=== PATIENT | female | born 1950 | race Caucasian/White ===

== ENCOUNTER → 2016-08-27 | Outpatient (CLI) | payer MEDICARE, OTHER ==
[~2016-08-27] MED LIST: ANORO ELLIPTA 62.1 - IH; BENTYL20 MG PO; CARAFATE1 GM PO; COMPAZINE10 MG PO; DELTASONE DPS10 MG PO; FLOVENT DISKU100 MCG IH; LEVAQUIN DPS750 MG PO; LEXAPRO20 MG PO; LIBRIUM-DPS25 MG PO; NITROSTAT0.4 MG SL; OXYGEN; PEPCID DPS20 MG PO; PRIMIDONE250 MG PO; PROAIR HFA8.5 GM IH; PROTONIX40 MG PO; SENEXON8.6 MG PO; SINEQUAN DPS PO; TURDOZA IH; TYLENOL PM EX-1 EACH PO; ZOCOR20 MG PO; ZOFRAN8 MG PO; [UNRECOGNIZED DRUG - OTHER] PO
== END | disposition home or self-care (01) ==
LOC: RAD.S 07-28 13:20
DX: Z12.31 Encounter for screening mammogram for malignant neoplasm of breast (principal); Z80.3 Family history of malignant neoplasm of breast

== ENCOUNTER 2016-09-13 23:55 | Emergency (ER) | payer MEDICARE, OTHER ==
[~2016-09-13 23:55] MED LIST changes: -ANORO ELLIPTA 62.1 - IH; -DELTASONE DPS10 MG PO; -FLOVENT DISKU100 MCG IH; -LEVAQUIN DPS750 MG PO; -LIBRIUM-DPS25 MG PO; -NITROSTAT0.4 MG SL; -PEPCID DPS20 MG PO; -SINEQUAN DPS PO
--- NOTE | 2016-09-14 06:13 | ER ---
ADMIT: 09/13/2016 RM/LOC: ER [facility] MR#: [id number] [address] [place] [address] Emergency Room Report SEX: F AGE: 65 : 1950 DATE: 09/13/2016 HISTORY OF PRESENT ILLNESS: Patient is a 65-year-old female with a past medical history of COPD, bipolar disorder, came to the ER with chief complaint of epigastric pain, pain is dull. She had it for 1 day. The patient states the pain was moderate, right now is [id number]. Does not increase with any position or eating. The patient states she had similar pain in the past, which resolved by itself spontaneously. The patient had normal bowel movement. The patient had no nausea or vomiting. PHYSICAL EXAMINATION: VITAL SIGNS: Normal. GENERAL: The patient was in no pain or distress, lying in bed, answering the question. HEAD AND NECK: Noncontributory. CHEST: Clear bilaterally. HEART: Normal heart sounds. ABDOMEN: There is no obvious tenderness or rebound or guarding. The rest of the physical exam is noncontributory. CBC showed white BC of 6.2 with hemoglobin of 13.1, lactic acid was 0.7 with AST of 14 and ALT of 17 and lipase of 89. Urine has just 2 white BC and [address] RBC. Abdom[address] and pelvis CT scan was negative for any pathologies. The patient received GI cocktail in the ER. The patient was observed and re- examined, did not develop any new symptoms. The patient is stable, pain improved. PLAN: The patient can be followed as an outpatient. Roque Fried MD/ alex JOB #: [id number] CC: Roque Fried MD, Attending Physician
--- NOTE | 2016-09-15 15:23 | NUR ---
Pt triggered for a high ED user. Called and spoke with pt. Pt states she talked with her PCP (Dr. Bassett) office yesterday. States she has transportation and able to get her medications. Deny any needs at this time. Pt has Medicare.
[2017-03-08] MEDS ORDERED: LIBRIUM-DPS25 MG PO (14:27)
[2017-03-08] MEDS ORDERED: NITROSTAT0.4 MG SL (14:28)
[2017-03-08] MEDS ORDERED: PRIMIDONE250 MG PO (14:30)
[2017-03-08] MEDS ORDERED: SINEQUAN DPS PO (14:31)
[2017-03-08] MEDS ORDERED: PEPCID DPS20 MG PO (14:32)
[2017-03-08] MEDS ORDERED: ANORO ELLIPTA 62.1 - IH (14:33)
[2017-03-08] MEDS ORDERED: FLOVENT DISKU100 MCG IH (14:36)
[2017-03-08] MEDS ORDERED: DELTASONE DPS10 MG PO (14:37)
[2017-03-08] MEDS ORDERED: LEVAQUIN DPS750 MG PO (14:37)
== END 2016-09-14 04:21 | disposition home or self-care (01) ==
LOC: ER 23:55
DX: R10.13 Epigastric pain (principal); F31.9 Bipolar disorder, unspecified; F17.210 Nicotine dependence, cigarettes, uncomplicated; Z88.0 Allergy status to penicillin; Z88.1 Allergy status to other antibiotic agents; Z88.5 Allergy status to narcotic agent; Z88.8 Allergy status to other drugs, medicaments and biological substances; Z79.899 Other long term (current) drug therapy

== ENCOUNTER 2016-11-16 09:36 | Day surgery (SDC) | payer MEDICARE, OTHER ==
[~2016-11-16] VITALS: Ht 160 cm; Wt 70.0 kg
--- NOTE | 2016-11-17 10:36 | OR ---
ADMIT: 11/16/2016 RM/LOC: [facility] MR#: [id number] [address] [place] [address] Operative/Delivery Room Report SEX: F AGE: 66 : 1950 SURGERY DATE: 11/16/2016 SURGEON: Ismael Ahn MD PREOPERATIVE DIAGNOSIS: Epigastric pain, question malabsorption problems. POSTOPERATIVE DIAGNOSES: 1. Small sliding-type hiatal hernia approximately 1 cm in length. 2. Small lipomatous appearing mass in the submucosa of the second portion of the duodenum. PROCEDURE PERFORMED: EGD with biopsies. ANESTHESIA: Sedation. ESTIMATED BLOOD LOSS: None. DESCRIPTION OF PROCEDURE: After appropriate informed consent was obtained, the patient was brought to the endoscopy suite. IV sedation was provided. A well-lubricated endoscope was introduced and passed down the esophagus. The proximal and mid esophagus appeared normal. Distal esophagus though did show evidence of sliding type hiatal hernia about 1 cm in length. No evidence of any significant reflux damage to the esophagus, no stricture or narrowing. The scope was easily advanced to the stomach. The gastric mucosa appeared normal throughout. The pylorus was intubated. Duodenal bulb appeared normal. In the second portion of the duodenum though, she did have a small, less than a cm in diameter submucosal nodule. There is no ulceration overlying. The mucosa appeared normal. I pushed on it with the biopsy forceps, it was very soft and it appeared to be consistent with a submucosal lipoma. Several biopsies were taken of the mucosa of the duodenum to rule out any malabsorption problem. The scope was then pulled back into the stomach, retroflexed again revealing just a small sliding-type hiatal hernia from below. No proximal gastritis or mass. Several biopsies taken of the antrum. Then biopsies also taken of the distal esophagus. The stomach was then deflated scope withdrawn without apparent complications. The patient tolerated the procedure well and was taken to the recovery room in stable condition. Ismael Ahn MD/ alex JOB #: [id number] CC: Ismael Ahn, Attending Physician Meka Rivera, Family Physician
[2017-03-08] MEDS ORDERED: LIBRIUM-DPS25 MG PO (14:27)
[2017-03-08] MEDS ORDERED: NITROSTAT0.4 MG SL (14:28)
[2017-03-08] MEDS ORDERED: PRIMIDONE250 MG PO (14:30)
[2017-03-08] MEDS ORDERED: SINEQUAN DPS PO (14:31)
[2017-03-08] MEDS ORDERED: PEPCID DPS20 MG PO (14:32)
[2017-03-08] MEDS ORDERED: ANORO ELLIPTA 62.1 - IH (14:33)
[2017-03-08] MEDS ORDERED: FLOVENT DISKU100 MCG IH (14:36)
[2017-03-08] MEDS ORDERED: LEVAQUIN DPS750 MG PO (14:37)
[2017-03-08] MEDS ORDERED: DELTASONE DPS10 MG PO (14:37)
== END 2016-11-16 12:34 | disposition home or self-care (01) ==
LOC: SSS 09:36
PROC: 0DB98ZX Excision of Duodenum, Via Natural or Artificial Opening Endoscopic, Diagnostic (ICD-10-PCS; principal; 2016-11-16)
PROC: 0DB78ZX Excision of Stomach, Pylorus, Via Natural or Artificial Opening Endoscopic, Diagnostic (ICD-10-PCS; principal; 2016-11-16)
PROC: 0DB38ZX Excision of Lower Esophagus, Via Natural or Artificial Opening Endoscopic, Diagnostic (ICD-10-PCS; principal; 2016-11-16)
DX: K29.50 Unspecified chronic gastritis without bleeding (principal); K21.9 Gastro-esophageal reflux disease without esophagitis; J44.9 Chronic obstructive pulmonary disease, unspecified; G47.30 Sleep apnea, unspecified; I10 Essential (primary) hypertension; F17.210 Nicotine dependence, cigarettes, uncomplicated; Z90.710 Acquired absence of both cervix and uterus; Z98.890 Other specified postprocedural states; Z88.0 Allergy status to penicillin; Z88.1 Allergy status to other antibiotic agents; Z88.6 Allergy status to analgesic agent; Z79.899 Other long term (current) drug therapy; Z86.010 Personal history of colon polyps

== ENCOUNTER 2016-11-28 06:51 | Emergency (ER) | payer MEDICARE, OTHER ==
--- NOTE | 2016-11-28 19:02 | ER ---
ADMIT: 11/28/2016 RM/LOC: ER [facility] MR#: [id number] [address] [place] [address] Emergency Room Report SEX: F AGE: 66 : 1950 DATE: 11/28/2016 The patient is a 66-year-old female with nonobstructive coronary artery disease, atypical chest pain, hyperlipidemia, hypertension, COPD, recent EGD by Dr. Ahn with no acute findings. The patient states that she has substernal chest pain for the past 3 hours, associated shortness of breath, and pleuritic-type pain. Continues to smoke. Exam is remarkable for nontoxic, afebrile female with audible wheezes. Chest x-ray, no acute findings. EKG showed sinus rhythm without ST-T or Q-wave change. The patient is given 2 DuoNeb, Solu-Medrol, magnesium with improvement. Discharged with Levaquin 500 mg daily and prednisone 20 mg daily and follow up with Dr. Rivera as scheduled. Viraj Hyman MD/ alex JOB #: [id number] CC: Viraj Hyman MD, Attending Physician Meka Rivera MD, Family Physician Meka Rivera MD
[2017-03-08] MEDS ORDERED: LIBRIUM-DPS25 MG PO (14:27)
[2017-03-08] MEDS ORDERED: NITROSTAT0.4 MG SL (14:28)
[2017-03-08] MEDS ORDERED: PRIMIDONE250 MG PO (14:30)
[2017-03-08] MEDS ORDERED: SINEQUAN DPS PO (14:31)
[2017-03-08] MEDS ORDERED: PEPCID DPS20 MG PO (14:32)
[2017-03-08] MEDS ORDERED: ANORO ELLIPTA 62.1 - IH (14:33)
[2017-03-08] MEDS ORDERED: FLOVENT DISKU100 MCG IH (14:36)
[2017-03-08] MEDS ORDERED: LEVAQUIN DPS750 MG PO (14:37)
[2017-03-08] MEDS ORDERED: DELTASONE DPS10 MG PO (14:37)
== END 2016-11-28 08:10 | disposition home or self-care (01) ==
LOC: ER 06:51
DX: R07.89 Other chest pain (principal); I10 Essential (primary) hypertension; E78.5 Hyperlipidemia, unspecified; J44.9 Chronic obstructive pulmonary disease, unspecified; J45.909 Unspecified asthma, uncomplicated; F32.9 Major depressive disorder, single episode, unspecified; F17.210 Nicotine dependence, cigarettes, uncomplicated; G40.909 Epilepsy, unspecified, not intractable, without status epilepticus; Z90.49 Acquired absence of other specified parts of digestive tract; Z88.0 Allergy status to penicillin; Z88.1 Allergy status to other antibiotic agents; Z88.6 Allergy status to analgesic agent; Z79.899 Other long term (current) drug therapy

== ENCOUNTER → 2016-12-14 | Outpatient (CLI) | payer MEDICARE, OTHER ==
[~2016-12-14] MED LIST changes: +ANORO ELLIPTA 62.1 - IH; +DELTASONE DPS10 MG PO; +FLOVENT DISKU100 MCG IH; +LEVAQUIN DPS750 MG PO; +LIBRIUM-DPS25 MG PO; +NITROSTAT0.4 MG SL; +PEPCID DPS20 MG PO; +SINEQUAN DPS PO
== END | disposition home or self-care (01) ==
LOC: RESC 12-08 10:46
DX: J44.9 Chronic obstructive pulmonary disease, unspecified (principal)